=== PATIENT | female | born 1985 | race Caucasian/White ===

== ENCOUNTER 2016-08-08 18:35 | Emergency (ER) | payer MEDICAID ==
[~2016-08-08] VITALS: Ht 160 cm; Wt 55.5 kg
[2016-08-08 18:35] VITALS: BP 119/75
[~2016-08-08 18:35] MED LIST: CITA40TA5 PO; IBUP-1222 PO; OXYC-302 PO; PREN1TAB60 PO; PROM25TA10 PO; SUMA100T4 PO
[2016-08-08] MEDS ORDERED: DIPH,PERTUSS(ACELL),TET VAC/PF 0.5 ML IM-VACC ONE ×2 (19:24→19:30)
== END 2016-08-08 19:43 | disposition home or self-care (01) ==
LOC: ED 19:39
DX: S61.412A Laceration without foreign body of left hand, initial encounter (principal); G43.909 Migraine, unspecified, not intractable, without status migrainosus; Z23 Encounter for immunization; W45.8XXA Other foreign body or object entering through skin, initial encounter; Y93.89 Activity, other specified; Y99.8 Other external cause status; Y92.009 Unspecified place in unspecified non-institutional (private) residence as the place of occurrence of the external cause
CPT/HCPCS: 12001; 90471; 90715

== ENCOUNTER 2016-09-21 16:35 | Emergency (ER) | payer MEDICAID ==
[~2016-09-21] VITALS: Ht 160 cm; Wt 53.5 kg
[2016-09-21 16:36] VITALS: BP 138/89
[2016-09-21] MEDS ORDERED: FLUORESCEIN OPHTHALMIC 1 MG STRIP EACHEYE ONE (17:00)
[2016-09-21] MEDS ORDERED: PROPARACAINE OPHTH 0.5%, 15ML ONE (17:03)
== END 2016-09-21 17:38 | disposition home or self-care (01) ==
LOC: ED 17:31
DX: H16.041 Marginal corneal ulcer, right eye (principal); M41.9 Scoliosis, unspecified
CPT/HCPCS: 99283

== ENCOUNTER 2018-01-19 09:21 | Emergency (ER) | payer SELFPAY ==
[~2018-01-19] VITALS: Ht 160 cm; Wt 57.2 kg
[2018-01-19 10:06] LABS: MICROSCOPIC AUTO
[2018-01-19 10:08] LABS: CULTURE INDICATED? YES
[2018-01-19 10:21] LABS: BASOPHILS # (AUTO) 0.03 x10^3/uL (0-0.1); BASOPHILS % (AUTO) 1 % (0-1); EOSINOPHILS # (AUTO) 0.02 x10^3/uL (0-0.4); EOSINOPHILS % (AUTO) 1 % (1-7); LYMPHOCYTES # (AUTO) 1.31 x10^3/uL (1-3.4); LYMPHOCYTES % (AUTO) 27 % (22-44); MD NO; MEAN CORPUSCULAR HEMOGLOBIN 31.5 pg (27.0-34.8); MEAN CORPUSCULAR HGB CONC 34.5 g/dL (32.4-35.8); MEAN CORPUSCULAR VOLUME 91.3 fL (80-100); MEAN PLATELET VOLUME 9.7 fL (7.4-10.4); MONOCYTES # (AUTO) 0.35 x10^3/uL (0.2-0.8); MONOCYTES % (AUTO) 7 % (2-9); NEUTROPHILS # (AUTO) 3.14 x10^3/uL (1.8-6.8); NEUTROPHILS % (AUTO) 65 % (42-75); PLATELET COUNT 168 x10^3/uL (130-400); RED BLOOD COUNT 4.53 x10^6/uL (3.82-5.3); RED CELL DISTRIBUTION WIDTH 12.8 % (9.6-15.2)
[2018-01-19 10:29] LABS: ANION GAP 7 mmol/L (5-15); CALCIUM 8.5 mg/dL (8.5-10.1); CHLORIDE 108 mmol/L (98-107)
[2018-01-19 10:32] VITALS: BP 123/87
[2018-01-19 10:35] LABS: CREATININE 0.91 mg/dL (0.55-1.02)
== END 2018-01-19 11:25 | disposition home or self-care (01) ==
LOC: ED 10:20
DX: N30.00 Acute cystitis without hematuria (principal); Z98.890 Other specified postprocedural states; Z41.1 Encounter for cosmetic surgery
CPT/HCPCS: 36415; 80048; 81001; 84703; 85025; 87077; 87086; 87186; 99283

== ENCOUNTER 2018-04-30 06:32 | Emergency (ER) | payer MEDICAID ==
[~2018-04-30] VITALS: Ht 160 cm; Wt 59.4 kg
[2018-04-30] MEDS ORDERED: ONDANSETRON ODT 4 MG ONE (07:12)
--- NOTE | 2018-04-30 07:25 | NUR ---
First contact with patient: Straight catheterization performed for urine sample collection, patient tolerated well. Patient up to restroom with significant other ambulating with stiff gait. Moderate distress, reporting lower back pain radiating to left lower extremity with a history of the same states "my sciatica is worse when I'm ".
[2018-04-30] MEDS ORDERED: ONDANSETRON ODT 4 MG PO ONE (07:30)
[2018-04-30 07:41] LABS: BASOPHILS # (AUTO) 0.01 x10^3/uL (0-0.1); BASOPHILS % (AUTO) 0 % (0-1); EOSINOPHILS # (AUTO) 0.03 x10^3/uL (0-0.4); EOSINOPHILS % (AUTO) 1 % (1-7); LYMPHOCYTES # (AUTO) 1.11 x10^3/uL (1-3.4); LYMPHOCYTES % (AUTO) 29 % (22-44); MD NO; MEAN CORPUSCULAR HEMOGLOBIN 30.9 pg (27.0-34.8); MEAN CORPUSCULAR HGB CONC 33.9 g/dL (32.4-35.8); MEAN PLATELET VOLUME 9.6 fL (7.4-10.4); MONOCYTES # (AUTO) 0.29 x10^3/uL (0.2-0.8); MONOCYTES % (AUTO) 8 % (2-9); NEUTROPHILS # (AUTO) 2.36 x10^3/uL (1.8-6.8); NEUTROPHILS % (AUTO) 62 % (42-75); PLATELET COUNT 159 x10^3/uL (130-400); RED BLOOD COUNT 4.32 x10^6/uL (3.82-5.3); RED CELL DISTRIBUTION WIDTH 12.6 % (9.6-15.2)
[2018-04-30 07:48] LABS: MICROSCOPIC NOT IND
[2018-04-30 07:52] LABS: ALBUMIN 3.7 g/dL (3.4-5.0); ANION GAP 5 mmol/L (5-15); CALCIUM 8.5 mg/dL (8.5-10.1); CHLORIDE 108 mmol/L (98-107); CREATININE 0.62 mg/dL (0.55-1.02)
[2018-04-30 07:54] LABS: CULTURE INDICATED? NO
[2018-04-30] MEDS ORDERED: ACETAMINOPHEN 500 MG TABLET ONE (07:58)
[2018-04-30] MEDS ORDERED: ACETAMINOPHEN 500 MG TABLET PO ONE (08:00)
--- NOTE | 2018-04-30 08:30 | NUR ---
Plan of care updated with patient, lab work and imaging complete. Call purdy within reach, no complaints or requests at this time.
[2018-04-30 09:06] VITALS: BP 106/66
--- NOTE | 2018-04-30 09:28 | NUR ---
Discharge instructions discussed with patient and significant other, questions answered. Patient ambulates with steady gait to discharge desk.
== END 2018-04-30 09:30 | disposition home or self-care (01) ==
LOC: ED 09:16
DX: O20.0 Threatened abortion (principal); G43.909 Migraine, unspecified, not intractable, without status migrainosus
CPT/HCPCS: 36415; 76801; 80048; 81003; 82040; 84702; 85025; 86901; 99284; Q0162

== ENCOUNTER 2018-05-02 09:48 | Emergency (ER) | payer MEDICAID ==
[~2018-05-02] VITALS: Ht 160 cm; Wt 59.0 kg
[2018-05-02 09:50] VITALS: BP 126/79
--- NOTE | 2018-05-02 10:13 | NUR ---
PT PRESENTED TO ED D/T VAGINAL BLEEDING X3 WEEKS. PT STATES "PASSED A CLOT THIS MORNING." HX OF MISCARRIAGE. . Addendum: 05/02/18 at 1016 by EDGAR PT PRESENTED TO ED D/T VAGINAL BLEEDING X3 WEEKS. PT STATES "PASSED A CLOT THIS MORNING." HX OF MISCARRIAGE. . PT CURRENTLY 8WKS 3DAYS .
[2018-05-02] MEDS ORDERED: PRENATALS (10:14)
[2018-05-02] MEDS ORDERED: HYDROcodone/APAP 5/325 TABLET ONE (10:18)
[2018-05-02] MEDS ORDERED: ONDANSETRON ODT 4 MG ONE (10:25)
[2018-05-02] MEDS ORDERED: ONDANSETRON ODT 4 MG PO ONE (10:30)
[2018-05-02] MEDS ORDERED: HYDROcodone/APAP 5/325 TABLET PO PRN (10:30)
--- NOTE | 2018-05-02 10:30 | NUR ---
MEDICATION ADMINISTERED PER EMAR FOR BACK PAIN AND NAUSEA. AWAITING US.
[2018-05-02 10:35] LABS: BASOPHILS # (AUTO) 0.03 x10^3/uL (0-0.1); BASOPHILS % (AUTO) 1 % (0-1); EOSINOPHILS # (AUTO) 0.05 x10^3/uL (0-0.4); EOSINOPHILS % (AUTO) 1 % (1-7); LYMPHOCYTES % (AUTO) 27 % (22-44); MD NO; MEAN CORPUSCULAR HEMOGLOBIN 30.7 pg (27.0-34.8); MEAN CORPUSCULAR HGB CONC 33.7 g/dL (32.4-35.8); MEAN CORPUSCULAR VOLUME 91.2 fL (80-100); MEAN PLATELET VOLUME 9.7 fL (7.4-10.4); MONOCYTES # (AUTO) 0.38 x10^3/uL (0.2-0.8); MONOCYTES % (AUTO) 8 % (2-9); NEUTROPHILS # (AUTO) 3.14 x10^3/uL (1.8-6.8); NEUTROPHILS % (AUTO) 64 % (42-75); PLATELET COUNT 161 x10^3/uL (130-400); RED BLOOD COUNT 4.44 x10^6/uL (3.82-5.3); RED CELL DISTRIBUTION WIDTH 13.1 % (9.6-15.2)
[2018-05-02 10:41] LABS: ALBUMIN 3.6 g/dL (3.4-5.0); ANION GAP 8 mmol/L (5-15); CALCIUM 8.5 mg/dL (8.5-10.1); CHLORIDE 107 mmol/L (98-107)
--- NOTE | 2018-05-02 11:15 | NUR ---
RN CALLED US TO FIND ETA ON TEST. US STATED PT IS NEXT.
--- NOTE | 2018-05-02 11:37 | NUR ---
PT IN US.
--- NOTE | 2018-05-02 11:55 | NUR ---
PT RETURNED FROM CT SCAN.
--- NOTE | 2018-05-02 12:15 | NUR ---
ERMD AT BEDSIDE GOING OVER US RESULTS.
--- NOTE | 2018-05-02 12:42 | NUR ---
PT DISCHARGED HOME IN A STABLE CONDITION. DC INSTRUCTIONS WERE DISCUSSED WITH PT. PT VERBALIZED UNDERSTANDING. NO FURTHER QUESTIONS OR CONCERNS WERE EXPRESSED AT THAT TIME. PT AMBULATED WITH RN TO DC DESK. STEADY GAIT.
== END 2018-05-02 12:44 | disposition home or self-care (01) ==
LOC: ED 10:41
DX: O20.0 Threatened abortion (principal); M54.5 Low back pain; G43.909 Migraine, unspecified, not intractable, without status migrainosus; Z98.890 Other specified postprocedural states; Z3A.08 8 weeks gestation of pregnancy
CPT/HCPCS: 36415; 76815; 80048; 82040; 84702; 85025; 99284; Q0162

== ENCOUNTER 2018-05-12 09:07 | Emergency (ER) | payer MEDICAID ==
[~2018-05-12] VITALS: Ht 160 cm; Wt 59.4 kg
[~2018-05-12 09:07] MED LIST changes: +PRENATALS
--- NOTE | 2018-05-12 09:30 | NUR ---
PT AMBULATED TO ROOM WITH STEADY GAIT. PT REPORTS WAKING UP THIS MORNING WITH CP, SOB, AND BEING SHAKEY. REPORTS THE PAIN SHARP/PRESSURE, THAT IS A 56 ON THE PAIN SCALE. STATED THAT THAKING A DEEP BREATH MAKES IT WORSE AND PUSHING ON IT MAKES IT BETTER. PT IS 89 WEEKS . DENIES COUGH/COLD SYMPTOMS. PT IS ALERT, ORIENTED, WITH NAD. PT IS CONNECTED TO THE MONITOR. CALL LIGHT WITHIN REACH.
[2018-05-12] MEDS ORDERED: PREN-1 PO (09:36)
[2018-05-12 10:12] LABS: BASOPHILS # (AUTO) 0.03 x10^3/uL (0-0.1); BASOPHILS % (AUTO) 1 % (0-1); EOSINOPHILS # (AUTO) 0.01 x10^3/uL (0-0.4); EOSINOPHILS % (AUTO) 0 % (1-7); LYMPHOCYTES # (AUTO) 1.25 x10^3/uL (1-3.4); LYMPHOCYTES % (AUTO) 28 % (22-44); MD NO; MEAN CORPUSCULAR HGB CONC 35.1 g/dL (32.4-35.8); MEAN CORPUSCULAR VOLUME 91.1 fL (80-100); MONOCYTES # (AUTO) 0.38 x10^3/uL (0.2-0.8); MONOCYTES % (AUTO) 8 % (2-9); NEUTROPHILS # (AUTO) 2.88 x10^3/uL (1.8-6.8); NEUTROPHILS % (AUTO) 63 % (42-75); PLATELET COUNT 168 x10^3/uL (130-400); RED BLOOD COUNT 4.25 x10^6/uL (3.82-5.3); RED CELL DISTRIBUTION WIDTH 13.1 % (9.6-15.2)
[2018-05-12 10:24] LABS: ALANINE AMINOTRANSFERASE 19 U/L (12-78); ALBUMIN 3.7 g/dL (3.4-5.0); ANION GAP 7 mmol/L (5-15); CALCIUM 8.9 mg/dL (8.5-10.1); CHLORIDE 108 mmol/L (98-107)
[2018-05-12 10:28] LABS: ALKALINE PHOSPHATASE 42 U/L (45-117); BILIRUBIN,TOTAL 0.5 mg/dL (0.2-1.0); TOTAL PROTEIN 7.3 g/dL (6.4-8.2); TROPONIN I < 0.015 ng/mL (0.000-0.045)
--- NOTE | 2018-05-12 10:30 | NUR ---
PT IS RESTING IN BED, RESPIRATIONS EQUAL AND NON LABORED. NAD. PT IS CONNECTED TO THE MONITOR. CALL LIGHT WITHIN REACH.
[2018-05-12 12:11] VITALS: BP 101/68
--- NOTE | 2018-05-12 12:11 | NUR ---
Patient given discharge instructions and they have confirmed that they understand the instructions. Patient ambulatory with steady gait.
== END 2018-05-12 12:13 | disposition home or self-care (01) ==
LOC: ED 10:13
DX: O26.891 Other specified pregnancy related conditions, first trimester (principal); Z3A.09 9 weeks gestation of pregnancy; R07.89 Other chest pain
CPT/HCPCS: 36415; 80053; 84484; 85025; 93005; 99284

== ENCOUNTER 2018-06-28 09:37 | Emergency (ER) | payer MEDICAID ==
[~2018-06-28] VITALS: Ht 160 cm; Wt 65.3 kg
[~2018-06-28 09:37] MED LIST changes: +PREN-1 PO
[2018-06-28 09:39] VITALS: BP 112/77
--- NOTE | 2018-06-28 09:45 | NUR ---
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
--- NOTE | 2018-06-28 10:03 | NUR ---
PT IN ROOM AT THIS TIME. PT IN GOWN WITH AT SIDE. PT C/O LEFT LEG PAIN WITH HX OF SCIATICA DURING . PT MADE MODERATE FALL RISK AT RN DISCRETION. NO RECENT FALLS. PT HAS UNSTEADY GAIT, AND INABILITY TO STAND DUE TO PAIN.
[2018-06-28] MEDS ORDERED: OXYcodone/APAP 5/325MG TABLET ONE (10:20)
[2018-06-28] MEDS ORDERED: OXYcodone/APAP 5/325MG TABLET PO ONE (10:30)
--- NOTE | 2018-06-28 10:43 | NUR ---
fht's by doppler 148, pt states feels movement
--- NOTE | 2018-06-28 11:34 | NUR ---
PT UP TO RESTROOM. PAIN IS BETTER WHEN LAYING STILL. NO CHANGES WHEN LEG IS MOVED. MADE AWARE.
== END 2018-06-28 12:27 | disposition home or self-care (01) ==
LOC: ED 12:21
DX: O26.892 Other specified pregnancy related conditions, second trimester (principal); Z3A.16 16 weeks gestation of pregnancy; M54.41 Lumbago with sciatica, right side
CPT/HCPCS: 99283

== ENCOUNTER 2018-09-26 12:16 | Emergency (ER) | payer MEDICAID ==
[~2018-09-26] VITALS: Ht 160 cm; Wt 76.0 kg
[2018-09-26 12:20] VITALS: BP 120/82
--- NOTE | 2018-09-26 12:25 | NUR ---
TASK RN:SPOKE W/ L&D WHO STATES TO HAVE PRIMARY RN CALL L&D WHEN PT TO ROOM TO DO MONITORING PT CAME TO ED FOR C/O DIZZINESS/NEAR SYNCOPE AND DENIES VB/DC/CRAMPING.
[2018-09-26 12:57] LABS: ALANINE AMINOTRANSFERASE 22 U/L (12-78); ANION GAP 8 mmol/L (5-15); BASOPHILS # (AUTO) 0.01 x10^3/uL (0-0.1); BASOPHILS % (AUTO) 0 % (0-1); CALCIUM 8.6 mg/dL (8.5-10.1); CHLORIDE 108 mmol/L (98-107); EOSINOPHILS # (AUTO) 0.02 x10^3/uL (0-0.4); EOSINOPHILS % (AUTO) 0 % (1-7); LYMPHOCYTES # (AUTO) 1.24 x10^3/uL (1-3.4); LYMPHOCYTES % (AUTO) 22 % (22-44); MD NO; MEAN CORPUSCULAR HEMOGLOBIN 31.6 pg (27.0-34.8); MEAN CORPUSCULAR HGB CONC 33.5 g/dL (32.4-35.8); MEAN CORPUSCULAR VOLUME 94.4 fL (80-100); MEAN PLATELET VOLUME 9.5 fL (7.4-10.4); MONOCYTES # (AUTO) 0.46 x10^3/uL (0.2-0.8); MONOCYTES % (AUTO) 8 % (2-9); NEUTROPHILS # (AUTO) 4.03 x10^3/uL (1.8-6.8); NEUTROPHILS % (AUTO) 70 % (42-75); PLATELET COUNT 174 x10^3/uL (130-400); RED BLOOD COUNT 3.85 x10^6/uL (3.82-5.3)
[2018-09-26 13:14] LABS: ALKALINE PHOSPHATASE 65 U/L (45-117); BILIRUBIN,TOTAL 0.3 mg/dL (0.2-1.0); CREATININE 0.54 mg/dL (0.55-1.02); TOTAL PROTEIN 7.6 g/dL (6.4-8.2)
[2018-09-26] MEDS ORDERED: DIPHENHYDRAMINE 50 MG/ML, 1ML IVPush ONE (14:30)
[2018-09-26] MEDS ORDERED: METOCLOPRAMIDE 5 MG/ML, 2ML IVPush ONE (14:30)
[2018-09-26] MEDS ORDERED: DIPHENHYDRAMINE 50 MG/ML, 1ML ONE (14:35)
[2018-09-26] MEDS ORDERED: METOCLOPRAMIDE 5 MG/ML, 2ML ONE (14:35)
[2018-09-26 14:37] LABS: CULTURE INDICATED? YES; MICROSCOPIC INDICATED
--- NOTE | 2018-09-26 15:16 | NUR ---
FLORINA (RN) IS ASSUMING CARE OF THIS PATIENT AT THIS TIME. SBAR REPORT WAS EXCHANGED AT THE BEDSIDE.
--- NOTE | 2018-09-26 15:34 | NUR ---
REPORT RECEIVED FROM [facility]. CARE TRANSFERRED. AT BEDSIDE. MD TO CONTACT PT'S OB.
--- NOTE | 2018-09-26 16:34 | NUR ---
Patient/Caregiver given discharge instructions and they have confirmed that they understand the instructions. Patient ambulatory with steady gait. PT TO GO TO L&D FOR NST.
== END 2018-09-26 16:35 | disposition home or self-care (01) ==
LOC: ED 14:52
DX: O12.03 Gestational edema, third trimester (principal); Z3A.29 29 weeks gestation of pregnancy; G43.909 Migraine, unspecified, not intractable, without status migrainosus
CPT/HCPCS: 36415; 76815; 80053; 81001; 84550; 84702; 85025; 87086; 93005; 96374; 96375; 99284; J1200; J2765

== ENCOUNTER 2019-12-11 10:38 | Emergency (ER) | payer MEDICAID ==
[~2019-12-11] VITALS: Ht 160 cm; Wt 57.0 kg
[2019-12-11 10:47] VITALS: BP 143/85
[2019-12-11] MEDS ORDERED: PROPARACAINE OPHTH 0.5%, 15ML ONE (11:01)
[2019-12-11] MEDS ORDERED: FLUORESCEIN OPHTHALMIC 1 MG STRIP ONE (11:01)
--- NOTE | 2019-12-11 11:01 | NUR ---
DR SAMAYOA AT BEDSIDE. PT ASSESSMENT AND POC DISCUSSED. EYE GTTS INSTILLED BY DR DANITA LINDSEY COMPLETED. DR SAMAYOA RPTS NO ULCERATIONS NOTED.
--- NOTE | 2019-12-11 12:11 | NUR ---
Patient/Caregiver given discharge instructions and they have confirmed that they understand the instructions. Patient ambulatory with steady gait.
== END 2019-12-11 12:11 | disposition home or self-care (01) ==
LOC: ED 10:57
DX: H57.13 Ocular pain, bilateral (principal)
CPT/HCPCS: 99283

== ENCOUNTER 2020-03-31 08:20 | Emergency (ER) | payer MEDICAID ==
[~2020-03-31] VITALS: Ht 160 cm; Wt 57.3 kg
[~2020-03-31 08:20] MED LIST changes: -OXYC-302 PO; +OXYC1TAB14 PO
--- NOTE | 2020-03-31 08:37 | NUR ---
PT STATED THAT SHE HAS HAD A MIGRAINE FOR 2.5 WEEKS NOW. SHE WOKE UP THIS MORNING WITH RIGHT EAR PAIN AND BLURRY VISION IN RIGHT EYE. PT DENIES ANY RECENT TRAUMA OR ILLNESS. PT STATES THAT SHE HAS SUFFERED FROM MIGRAINES HER ENTIRE LIFE.
[2020-03-31] MEDS ORDERED: KETOROLAC 30 MG/1 ML ONE (08:49)
[2020-03-31] MEDS ORDERED: PROCHLORPERAZINE 5 MG/ML, 2ML ONE (08:49)
[2020-03-31] MEDS ORDERED: PROCHLORPERAZINE 5 MG/ML, 2ML IVPush ONE (09:00)
[2020-03-31] MEDS ORDERED: KETOROLAC 30 MG/1 ML IVPush ONE (09:00)
[2020-03-31] MEDS ORDERED: SODIUM CHLORIDE 0.9% 1,000ML IVBOLUS ONE (09:00)
--- NOTE | 2020-03-31 09:50 | NUR ---
pt to ct
--- NOTE | 2020-03-31 10:21 | NUR ---
Pt back from ct, resting in bed
--- NOTE | 2020-03-31 10:21 | NUR ---
TASK RN: PT AMBULATED TO THE BR W/ A STEADY GAIT.
[2020-03-31 10:48] VITALS: BP 122/86
--- NOTE | 2020-03-31 10:48 | NUR ---
DISCHARGE INSTRUCTIONS REVIEWED
== END 2020-03-31 10:50 | disposition home or self-care (01) ==
LOC: ED 09:27
DX: G44.219 Episodic tension-type headache, not intractable (principal); R11.2 Nausea with vomiting, unspecified; H53.149 Visual discomfort, unspecified
CPT/HCPCS: 70450; 96361; 96374; 96375; 99284; J0780; J1885; J7030